=== PATIENT | female | born 1965 | race African-American/Black ===

== ENCOUNTER 2016-09-21 16:19 | Day surgery (SDC) | payer OTHER ==
[2016-09-17 10:47] VITALS: BMI 29.1
--- NOTE | 2016-09-21 11:29 | HP ---
History & Physical Update - History History: No Change - Physical Physical: No Change - Assessment Assessment: No Change - Plan Plan: No Change
[2016-09-21 16:10] VITALS: PULSE 88
[~2016-09-21 16:19] MED LIST: ACETAMINOPHEN 325 MG TABLET (FP) PO PRN; IBUPROFEN 400 MG TABLET (FP) PO PRN; LACTATED RINGERS SOLUTION 1,000 ML IV SCH; ONDANSETRON 4 MG/2 ML VIAL IVPUSH PRN; PROMETHAZINE HCL 25 MG/1 ML VIAL IVPUSH PRN; ceFAZolin SODIUM 1 GM VIAL IVPB ONE; oxyCODONE HCL 5 MG TABLET PO PRN
[2016-09-21] MEDS ORDERED: oxyCODONE HCL 5 MG TABLET ONE (16:28)
--- NOTE | 2016-09-21 16:30 | OP ---
Operative Note - Note: Operative Date: 09/21/16 Pre-Operative Diagnosis: Submucousal myoma Operation: Hysteroscopic Myomectomy. Suction DC Findings: 2-3 cm myoma Post-Operative Diagnosis: Same as Pre-op Surgeon: Clare Herr Anesthesia: General Estimated Blood Loss (mls): 50 Operative Report Dictated: Yes
[2016-09-21] MEDS ORDERED: ACETAMINOPHEN 325 MG TABLET (FP) ONE (17:08)
[2016-09-21 17:56] VITALS: BP 106/70; TEMP 97.8
--- NOTE | 2016-09-23 15:06 | PATH ---
Surgical Pathology Report Patient Name: REED ANDREW [facility]. Rec. #: [id number] /Age/Gender: 1965 (Age: 51) / F Account: [id number] Location: [facility] [facility] Taken: 09/21/2016 Received: 09/22/2016 Reported: 09/23/2016 Physicians: Clare Herr M.D. Specimen(s) Received SUBMUCOSAL MYOMA/SUCTION D&C Clinical History Submucosal myoma Final Diagnosis UTERINE SUBMUCOSAL MYOMA, HYSTEROSCOPIC MYOMECTOMY, SUCTION, DILATION AND CURETTAGE: FRAGMENTS OF BENIGN SMOOTH MUSCLE AND FRAGMENTS OF WEAKLY PROLIFERATIVE ENDOMETRIUM COMPATIBLE WITH SUBMUCOSAL LEIOMYOMA. Electronically Signed Andreas Mix M.D. Gross Description Received in formalin labeled "uterine submucosal myoma" is a 9 g, 4.7 x 4.0 x 0.5 cm aggregate of multiple rae, firm to rubbery tissue fragments, consistent with morcellated fibroids. The specimen is submitted in toto in 4 cassettes. /09/22/2016 [facility]09/22/2016
--- NOTE | 2016-09-28 14:51 | OP ---
DATE OF OPERATION: 09/21/2016 PREOPERATIVE DIAGNOSIS: Submucosal myoma. OPERATION: Hysteroscopic myomectomy and suction dilatation and curettage. POSTOPERATIVE DIAGNOSIS: Submucosal myoma. SURGEON: Clare Herr MD ANESTHESIA: General CEMENTER OIL WELL: Crow Cui Jr., Nurse Roadway Technician PROCEDURE: Patient was taken to the operating room, placed in dorsal lithotomy position, prepped and draped in the usual sterile fashion. A speculum was placed in the vagina. Anterior lip of the cervix was grasped with a single-tooth tenaculum. Cervix was then dilated to accommodate the operative hysteroscope. Operative hysteroscope was then inserted, and cautery was then used to cut the large submucosal myoma. Approximately 2-3 cm was noted, and cautery was then used to cut most of the myoma away from the endometrium. A type I myoma was seen. Suction dilation and curettage was done, and contents were submitted to Pathology. Procedure had to be stopped due to fluid deficit. However, most of the myoma had been removed. Estimated blood loss was 20 mL. All instruments were then removed. Patient tolerated the procedure well and was taken to recovery room in stable condition. CLARE HERR M.D. [id number]
== END 2016-09-21 18:03 | disposition home or self-care (01) ==
LOC: JASU-SURG 16:19
PROVIDERS: ATTEND Obstetrics & Gynecology
PROC: 0UB98ZZ Excision of Uterus, Via Natural or Artificial Opening Endoscopic (ICD-10-PCS; principal; 2016-09-21 11:30)
DX: D25.0 Submucous leiomyoma of uterus (principal)
CPT/HCPCS: 84703; 88305-TC; 94760

== ENCOUNTER → 2016-12-07 | Day surgery (SDC) | payer OTHER ==
--- NOTE | 2016-12-08 17:30 | PATH ---
Cytology Non-Gynecological Report Patient Name: REED ANDREW [facility]. Rec. #: [id number] /Age/Gender: 1965 (Age: 51) / F Account: [id number] Location: RADIOLOGY Taken: 12/07/2016 Received: 12/07/2016 Reported: 12/08/2016 Physicians: Dom Sidhu M.D. Specimen(s) Received RIGHT THYROID FNA Clinical History Right thyroid nodule, 1.53 x 1.02 x 1.16 cm Final Diagnosis THYROID GLAND, RIGHT LOBE, US GUIDED FINE NEEDLE ASPIRATION BIOPSY: EVALUATION IS LIMITED BY LOW CELLULARITY. SCATTERED CLUSTERS OF BLAND APPEARING FOLLICULAR EPITHELIAL CELLS AND COLLOID SUGGESTIVE OF NODULAR GOITER (SEE COMMENT). Comment: The smears show scattered clusters of bland appearing follicular epithelial cells and colloid, suggestive of nodular goiter ([place] category II, benign). Imaging correlations and follow up are suggested. Electronically Signed Andreas Mix M.D. Gross Description Received are four air dried smears, four smears in 95% alcohol, and 20 cc of bloody fluid in formalin. Four diff-quik stained slides, four Pap stained slides and one cell block are made.
== END | disposition home or self-care (01) ==
LOC: JRADIR 10:25
PROVIDERS: ATTEND Internal Medicine Endocrinology, Diabetes & Metabolism
PROC: 0GBH3ZX Excision of Right Thyroid Gland Lobe, Percutaneous Approach, Diagnostic (ICD-10-PCS; principal; 2016-12-07)
PROC: BG44ZZZ Ultrasonography of Thyroid Gland (ICD-10-PCS; 2016-12-07)
DX: E04.2 Nontoxic multinodular goiter (principal)
CPT/HCPCS: 76942; 88173; 88305-TC

== ENCOUNTER → 2017-02-05 | Day surgery (SDC) | payer OTHER ==
--- NOTE | 2017-02-08 16:19 | PATH ---
Cytology Non-Gynecological Report Patient Name: REED ANDREW [facility]. Rec. #: [id number] /Age/Gender: 1965 (Age: 51) / F Account: [id number] Location: RADIOLOGY Taken: 02/05/2017 Received: 02/05/2017 Reported: 02/08/2017 Physicians: Dom Sidhu M.D. Specimen(s) Received ISTHMUS THYROID FNA Clinical History Isthmus 1.25 x 0.77 x 1.46 cm Final Diagnosis THYROID, ISTHMUS, FINE NEEDLE ASPIRATION: SATISFACTORY FOR EVALUATION [place] CATEGORY II: BENIGN (NO MALIGNANT CELLS IDENTIFIED) CYTOLOGIC FINDINGS ARE CONSISTENT WITH A BENIGN FOLLICULAR NODULE (ADENOMATOID NODULE) BENIGN FOLLICULAR CELLS AND COLLOID PRESENT. Comment: Recommend correlation with clinical findings and follow up as clinically indicated. Electronically Signed Khoa Brandt M.D. Gross Description Received are eight direct smears, four of which are air-dried and Diff-Quik stained, and four of which are alcohol fixed and Pap stained. Also received is 20 ml of bloody formalin from which one cellblock is prepared.
== END | disposition home or self-care (01) ==
LOC: JRADIR 10:18
PROVIDERS: ATTEND Internal Medicine Endocrinology, Diabetes & Metabolism
PROC: 0G9K3ZX Drainage of Thyroid Gland, Percutaneous Approach, Diagnostic (ICD-10-PCS; principal; 2017-02-05)
PROC: BG44ZZZ Ultrasonography of Thyroid Gland (ICD-10-PCS; 2017-02-05)
DX: E04.1 Nontoxic single thyroid nodule (principal)
CPT/HCPCS: 76942; 88173; 88305-TC

== ENCOUNTER 2017-02-22 11:47 | Emergency (ER) | payer OTHER ==
[2017-02-22 11:57] VITALS: TEMP 98.1; BMI 28.1
[2017-02-22] MEDS ORDERED: KETOROLAC TROMETHAMINE 30 MG/1 ML VIAL IVPUSH ONE (15:00)
[2017-02-22] MEDS ORDERED: KETOROLAC TROMETHAMINE 30 MG/1 ML VIAL ONE (15:09)
[2017-02-22 15:27] LABS: BASOPHIL 0.6 % (0-2.0); EOSINOPHIL 0.9 % (0-4.5); MCH 28.5 pg (25.7-33.7); MEAN CELL VOLUME 86.4 fl (80-96); MEAN PLT VOLUME 9.5 fl (7.5-11.1); NEUTROPHILS 55.5 % (42.8-82.8); PLATELET COUNT 236 K/MM3 (134-434); WHITE BLOOD COUNT 4.8 K/mm3 (4.0-10.0)
[2017-02-22 15:29] LABS: URINE APPEARANCE SLCLOUDY; URINE BILIRUBIN NEGATIVE (NEGATIVE); URINE BLOOD 1+ (NEGATIVE); URINE COLOR YELLOW; URINE GLUCOSE (UA) NEGATIVE (NEGATIVE); URINE KETONE NEGATIVE (NEGATIVE); URINE LEUK ESTERASE NEGATIVE (NEGATIVE); URINE NITRITE NEGATIVE (NEGATIVE); URINE PROTEIN NEGATIVE (NEGATIVE); URINE UROBILINOGEN NEGATIVE mg/dL (0.2-1.0)
[2017-02-22 15:32] LABS: URINE MUCUS RARE; URINE RBC 8 /hpf (0-3); URINE WBC 1 /hpf (3-5)
[2017-02-22 15:38] LABS: CPK 373 IU/L (26-192)
[2017-02-22 15:39] LABS: TROPONIN I < 0.02 ng/ml (0.00-0.05)
--- NOTE | 2017-02-22 17:04 | PDOC ---
History of Present Illness - General Chief Complaint: Pain Stated Complaint: LT SIDE PAIN Time Seen by Provider: 02/22/17 14:25 History Source: Patient Exam Limitations: No Limitations - History of Present Illness Travel History: No Initial Comments: 02/22/17 17:00 52-year-old male presents to the emergency room with complaints of right upper quadrant pain which she states is worsened with movement. Patient states pain has been present for the past 2 weeks and has not taken anything for the above. Patient denies chest pain, shortness of breath, nausea, vomiting, fever, chills , radiation of pain, change in urine pattern, change in bowel pattern. Patient states has not seen his PCP for the above. Timing/Duration: reports: intermittent Quality: reports: moderate, aching Abdominal Pain Onset Location: reports: LUQ Pain Radiation: reports: no radiation Activities at Onset: reports: none Aggravating Factors: improves with: Movement Alleviating Factors: improves with: Rest Past History - Past Medical History Allergies/Adverse Reactions: Allergies Allergy/AdvReac Type Severity Reaction Status Date / Time nitrofurantoin Allergy Severe Hives Verified 02/22/17 15:01 Home Medications: Ambulatory Orders Levothyroxine [Synthroid -] 50 mcg PO DAILY 09/17/16 Simvastatin 20 mg PO DAILY 09/17/16 Ibuprofen [Motrin -] 600 mg PO TID PRN #21 tablet 02/22/17 Asthma: (BRONCHITIS) CVA: No Dementia: No Diabetes: No GI Disorders: No Disorders: Yes (KIDNEY STONES) Hypercholesterolemia: Yes Kidney Stones: Yes Liver Disease: No Seizures: No Thyroid Disease: Yes (HYPOTHYROIDISM) - Psycho/Social/Smoking Cessation Hx Anxiety: No Suicidal Ideation: No Smoking History: Former smoker Have you smoked in the past 12 months: No Information on smoking cessation initiated: No Hx Alcohol Use: No Drug/Substance Use Hx: No Substance Use Type: None Patient Lives Alone: No Lives with/in: spouse/SO Review of Systems - Review of Systems Able to Perform ROS?: No Is the patient limited Latvian proficient: No Constitutional: No: Symptoms Reported HEENTM: No: Symptoms Reported Respiratory: No: Symptoms reported Cardiac (ROS): No: Symptoms Reported ABD/GI: Yes: Abdominal cramping (luq) Musculoskeletal: No: Symptoms Reported Integumentary: No: Symptoms Reported Neurological: No: Symptoms reported *Physical Exam - Vital Signs Last Vital Signs Temp Pulse Resp BP Pulse Ox 98.1 F 78 18 155/85 100 02/22/17 11:54 02/22/17 11:54 02/22/17 11:54 02/22/17 11:54 02/22/17 11:54 - Physical Exam General Appearance: Yes: Nourished, Appropriately Dressed. No: Apparent Distress HEENT: negative: Pale Conjunctivae Respiratory/Chest: positive: Lungs Clear, Normal Breath Sounds. negative: Respiratory Distress, Accessory Muscle Use Cardiovascular: positive: Regular Rhythm, Regular Rate. negative: Murmur Gastrointestinal/Abdominal: positive: Soft, Tenderness (no rebound, no guarding , tender over 10th and 11th rib at mcl to mal. ) Musculoskeletal: negative: CVA Tenderness Extremity: positive: Normal Capillary Refill. negative: Pedal Edema Integumentary: positive: Normal Color, Warm, Moist. negative: Rash Neurologic: positive: Motor Strength 5/5 (ambulatory) Heart Score/ECG Review - History History: Slightly suspicious - Electrocardiogram EKG: Normal - Age Age: 45-65 - Risk Factors Risk Factors Heart Score: Yes Hx Hypercholesterolemia Based on the list above the patient has:: 1-2 risk factors - Troponin Troponin: </= normal limit - Score Heart Score - Total: 2 - ECG Intrepretation Rhythm: Regular Rhythm (rate 67. no acute findings noted) ED Treatment Course - LABORATORY CBC & Chemistry Diagram: 02/22/17 15:02 - ADDITIONAL ORDERS Additional order review: Laboratory Results 02/22/17 02/22/17 15:20 15:02 Creatine Kinase 373 H Troponin I < 0.02 Urine Color Yellow Urine Appearance Slcloudy Urine pH 6.0 Urine Protein Negative Urine Glucose (UA) Negative Urine Ketones Negative Urine Blood 1+ H Urine Nitrite Negative Urine Bilirubin Negative Urine Urobilinogen Negative Ur Leukocyte Esterase Negative Urine RBC 8 Urine WBC 1 Ur Epithelial Cells Rare Urine Mucus Rare 02/22/17 15:02 RBC 4.48 MCV 86.4 MCHC 33.0 RDW 16.0 H MPV 9.5 Neutrophils % 55.5 Lymphocytes % 36.4 Monocytes % 6.6 Eosinophils % 0.9 Basophils % 0.6 - RADIOLOGY Radiology Studies Ordered: Category Date Time Status CHEST X-RAY PORTABLE* [RAD] Stat Radiology 02/22/17 15:00 Completed - Medications Given in the ED: ED Medications Discontinued Medications Generic Name Dose Route Start Last Admin Trade Name Benigonq PRN Reason Stop Dose Admin Ketorolac Tromethamine 30 mg 02/22/17 15:00 02/22/17 15:18 Toradol Injection - IVPUSH 02/22/17 15:01 30 mg ONCE ONE Administration Medical Decision Making - Medical Decision Making 16:15 Patient here with intermittent left upper quadrant pain worsened with movement. Patient on exam had point tenderness at midclavicular line extending to the mid axillary line. Skin was otherwise intact. Lungs were otherwise clear. Patient was ordered for chest x-ray, labs, EKG, IV Toradol, and cardiac profile. 02/22/17 17:17 Chest x-ray negative. Laboratory Tests 02/22/17 02/22/17 02/22/17 15:02 15:02 15:20 WBC 4.8 Hgb 12.8 Hct 38.8 RDW 16.0 H Plt Count 236 Neutrophils % 55.5 Creatine Kinase 373 H Troponin I < 0.02 Urine Blood 1+ H Urine Nitrite Negative Ur Leukocyte Esterase Negative Urine WBC 1 patient recommended increase her fluids secondary mildly elevated CK. *DC/Admit/Observation/Transfer Diagnosis at time of Disposition: Musculoskeletal pain - Discharge Dispostion Disposition: HOME Condition at time of disposition: Improved - Prescriptions Prescriptions: Ibuprofen [Motrin -] 600 mg PO TID PRN #21 tablet PRN Reason: Pain - Referrals Referrals: Maddie Heard [Primary Care Provider] - - Patient Instructions Printed Discharge Instructions: DI for Musculoskeletal Pain Additional Instructions: Please take Motrin 600 mg every 6-8 hours for discomfort. drink plenty of fluids. Please follow-up with your primary care physician to discuss today's visit. Please return to ED if symptoms worsen.
[2017-02-22 17:32] VITALS: BP 146/79; PULSE 84
--- NOTE | 2017-02-23 13:09 | EKG ---
Test Reason : Blood Pressure : / mmHG Vent. Rate : 073 BPM Atrial Rate : 073 BPM P-R Int : 150 ms QRS Dur : 090 ms QT Int : 418 ms P-R-T Axes : 042 030 014 degrees QTc Int : 460 ms NORMAL SINUS RHYTHM NORMAL ECG NO PREVIOUS ECGS AVAILABLE REPEAT EKG IF CLINICALLY INDICATED Confirmed by NICOLE MARADIAGA MD ([id number]) on 02/23/2017 1:08:36 PM Referred By: Confirmed By:NICOLE MARADIAGA MD
== END 2017-02-22 17:32 | disposition home or self-care (01) ==
LOC: JER 11:47
PROC: 3E0333Z Introduction of Anti-inflammatory into Peripheral Vein, Percutaneous Approach (ICD-10-PCS; principal; 2017-02-22)
DX: R10.12 Left upper quadrant pain (principal); E03.9 Hypothyroidism, unspecified; E78.00 Pure hypercholesterolemia, unspecified
CPT/HCPCS: 36415; 71010-TC; 81003; 81015; 82553; 84484; 85025; 93005; 93010; 96374; 99283-25

== ENCOUNTER 2019-08-12 13:05 | Emergency (ER) | payer OTHER ==
[2019-08-12 13:39] VITALS: BP 153/83; PULSE 105; TEMP 97.6; BMI 29.0
--- NOTE | 2019-08-12 14:23 | PDOC ---
History of Present Illness - General Chief Complaint: Psychiatric Stated Complaint: ABD PAIN Time Seen by Provider: 08/12/19 14:21 History Source: Patient Exam Limitations: No Limitations - History of Present Illness Initial Comments: 08/12/19 14:21 PCP: Dr. Hameed HPI: 54yo F PMH HLD, HTN, hypothyroidism presenting with complain of "I have been and dilated for 2 years and would like to be checked." Reports she was seen at [facility] and was discharged from their ED last night and was given transportation to [facility] for evaluation of her . She reports having Dr. Herr as her CABLE TELEVISION ACCESS COORDINATOR, s/p myomectomy 2016. Reports getting normal blood tests off and on at [facility] and PCP/CABLE TELEVISION ACCESS COORDINATOR office. Denies any psychiatric illnesses. State that the only thing that bothers her is feeling a little more tired than usual. Denies abdominal pain, chest pain, nausea, vomiting, fevers, chills, dysuria, cough, abnormal bowel movements. Per brother, Jd Aaron, Patient keeps to herself, hasn't seen her in 2 months as she "keeps to herself." She has been hearing voices for 2 years or more. He is not aware of any psychiatrist that follows her but reports that she has been in and out of the hospital over this period. [facility] per attending note. Blood work and psychiatric evaluation yesterday. All: Nitrofurantoin > Hives PMH: As above PSH: Colonoscopy, Endoscopy, Lithotripsy, Hernia repair SHx: Lives alone, denies toxic habits 08/12/19 16:19 Per Sister Meri, patient was admitted to a [facility] here in [employer], given diagnosis of schizophrenia. She also reports that the patient was last in touch with family before Neymar, now asking them to leave her to herself. Per Meri, the family had discussions with patient and Dr. Hameed and patient refused to seek care at that time. Past History - Travel Traveled outside of the country in the last 30 days: No Close contact w/someone who was outside of country & ill: No - Past Medical History Allergies/Adverse Reactions: Allergies Allergy/AdvReac Type Severity Reaction Status Date / Time nitrofurantoin Allergy Severe Hives Verified 08/12/19 13:32 Home Medications: Ambulatory Orders Levothyroxine [Synthroid -] 50 mcg PO DAILY 09/17/16 Simvastatin 20 mg PO HS 09/17/16 Ibuprofen [Motrin -] 600 mg PO TID PRN #21 tablet 02/22/17 Cephalexin [Keflex] 500 mg PO BID 5 Days #10 capsule 08/12/19 Asthma: (BRONCHITIS) CVA: No Dementia: No Diabetes: No GI Disorders: No Disorders: Yes (KIDNEY STONES) Hypercholesterolemia: Yes Kidney Stones: Yes Liver Disease: No Seizures: No Thyroid Disease: Yes (HYPOTHYROIDISM) - Psycho Social/Smoking Cessation Hx Smoking History: Never smoked Have you smoked in the past 12 months: No Hx Alcohol Use: No Drug/Substance Use Hx: No Substance Use Type: None Review of Systems - Review of Systems Able to Perform ROS?: Yes Is the patient limited Indonesian proficient: Yes Constitutional: No: Chills, Diaphoresis, Fever HEENTM: No: Recent change in vision, Nose Congestion, Throat Pain Respiratory: No: Cough, Shortness of Breath, Wheezing, Productive cough Cardiac (ROS): No: Chest Pain, Irregular Heart Rate, Lightheadedness, Palpitations, Syncope, Chest Tightness ABD/GI: No: Constipated, Diarrhea, Nausea, Poor Appetite, Poor Fluid Intake, Vomiting : No: Burning, Dysuria, Discharge, Frequency Musculoskeletal: No: Muscle Pain, Muscle Weakness Integumentary: No: Pallor, Pruritus, Rash, Sweating Neurological: No: Headache, Numbness, Tingling, Weakness Psychiatric: No: Change in Appetite Endocrine: No: Increased Thirst, Increased Urine, Change in Weight Hematologic/Lymphatic: No: Anemia, Blood Clots, Easy Bleeding All Other Systems: Reviewed and Negative *Physical Exam - Vital Signs Last Vital Signs Temp Pulse Resp BP Pulse Ox 97.6 F 105 H 18 153/83 99 08/12/19 13:36 08/12/19 13:36 08/12/19 13:36 08/12/19 13:36 08/12/19 13:36 - Physical Exam 08/12/19 16:31 Vitals reviewed, AFVSS GEN: Well appearing, appears stated age, NAD, comfortable. AAOx3. HEENT: NCAT, EOMI, PERRL. Sclera anicteric, noninjected. No facial asymmetry. Moist mucous membranes. Normal voice. Trachea midline. CV: RRR, S1/S2, no murmurs / rubs / gallops appreciated. LUNG: CTAB, normal work of breathing. No wheezes, rales, rhonchi. No cough. Speaking full sentences. GI: Soft, NTND, +BS, no guarding, no rebound. No masses. Neg CVAT b/l. EXTREMITIES: 2+ distal pulses. No LE edema. No obvious deformities of all extremities. SKIN: Warm, dry, no rashes appreciated, non-jaundiced. PSYCH: Normal mood and affect. Cooperative and appropriate. NEURO: CN grossly intact. Moving all extremities well. Normal strength and sensation grossly. Medical Decision Making - Medical Decision Making 08/12/19 16:32 54yo F PMH HLD, HTN, hypothyroidism presenting with complain of "I have been and dilated for 2 years and would like to be checked." History of Schizophrenia, isolated from family for past 2 months, no medical complaints, cleared medically and psych at [facility] yesterday. Not a risk to self or others at the current time. Fixed delusions regarding . - UA, UPreg 08/12/19 17:07 - Non-, patient informed - UTI, Keflex 500 given - Keflex Rx sent to pharmacy Dispo: Home Discharge - Discharge Information Problems reviewed: Yes Clinical Impression/Diagnosis: Schizophrenia Qualifiers: Schizophrenia type: unspecified Qualified Code(s): F20.9 - Schizophrenia, unspecified Urinary tract infection Qualifiers: Urinary tract infection type: site unspecified Hematuria presence: with hematuria Qualified Code(s): N39.0 - Urinary tract infection, site not specified Condition: Stable Disposition: HOME - Admission No - Additional Discharge Information Prescriptions: Cephalexin [Keflex] 500 mg PO BID 5 Days #10 capsule - Follow up/Referral Referrals: Mae Hameed MD [Primary Care Provider] - - Patient Discharge Instructions Patient Printed Discharge Instructions: DI for Urinary Tract Infection (UTI) Additional Instructions: You were diagnosed with a urinary tract infection. Please cotton picker the prescription for antibiotics at your pharmacy and take them as directed. Follow up with your primary care doctor in the next week. Return to the ED for any new or concerning symptoms. - Post Discharge Activity
--- NOTE | 2019-08-12 15:18 | PDOC ---
Attending Attestation - Resident Resident Name: DaoQuentin - ED Attending Attestation I have performed the following: I have examined & evaluated the patient, The case was reviewed & discussed with the resident, I agree w/resident's findings & plan, Exceptions are as noted - HPI HPI: 08/12/19 15:18 54y F hx of HL, htn, presents with complaint of possible . Pt states that her 'fetus was in the sac and now it is in the uterus', states that she has been for two years, had gone to [facility] last night and had lab work and a urine test and was told she was going to be transferred to [facility]. She denies any other complaints including fever/chills, cp, sob, abd pain, vag bleeding, vag discharge, diarrhea. 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 The police was notified and they were sent to [facility] for evaluation. The patient had blood test, U tox, EtOH level, UA that were performed without any notable findings. The patient was also cleared by psych and then discharged. There was no mention of any related complaint, the patient did not have a test. Exam: GENERAL: The patient is awake, alert, and fully oriented, Nontoxic - in no acute distress. HEAD: Normocephalic, atraumatic. EYES: extraocular movements intact, sclera anicteric, conjunctiva clear. ENT: Normal voice, Moist mucous membranes. NECK: Normal range of motion, supple LUNGS: Breath sounds equal, clear to auscultation bilaterally. No wheezes, no rhonchi, no rales. HEART: Regular rate and rhythm, normal S1 and S2 without murmur, rub or gallop. ABDOMEN: Soft, nontender, No guarding, no rebound. No CVA tenderness EXTREMITIES: Normal range of motion, trace edema. NEUROLOGICAL: No facial assymetry, Normal speech, moving all 4 extremities extremities spontaneously symmetrically PSYCH: Normal mood, normal affect. SKIN: Warm, Dry, normal turgor, Will obtain a UA and U . Patient has no other complaints including abdominal pain, vaginal bleeding, or other symptoms the patient also had a recent work-up with lab work at [facility] will defer further blood test at this time. The patient is illogical, she denies any SI/HI. If lab tests unremarkable anticipate discharge with outpatient follow-up - Physicial Exam PE: 08/14/19 09:38 see abovbe - Medical Decision Making pts ua suggestive of UTI willtreat with abx negative pt asymptmoatic. will have the pt fu with PMD return precautions were discussed
[2019-08-12 16:16] LABS: URINE APPEARANCE TURBID; URINE BILIRUBIN NEGATIVE (NEGATIVE); URINE COLOR YELLOW; URINE GLUCOSE (UA) NEGATIVE (NEGATIVE); URINE KETONE 1+ (NEGATIVE)
[2019-08-12 16:17] LABS: URINE PROTEIN TRACE (NEGATIVE)
[2019-08-12 16:18] LABS: EPI CELLS 12.7 /HPF (0-5/HPF); URINE LEUK ESTERASE 2 (NEGATIVE); URINE NITRITE NEGATIVE (NEGATIVE); URINE RBC 10.4 /hpf (0-4); URINE WBC 161.7 /hpf (0-5)
[2019-08-12 16:19] LABS: HYALINE CASTS 664.54 /lpf (0-8); URINE BACTERIA 233.7 /hpf (NEGATIVE)
[2019-08-12] MEDS ORDERED: CEPHALEXIN MONOHYDRATE 500 MG CAPSULE (UD) PO ONE (17:10)
[2019-08-12] MEDS ORDERED: CEPHALEXIN MONOHYDRATE 500 MG CAPSULE (UD) ONE (17:19)
== END 2019-08-12 17:26 | disposition home or self-care (01) ==
LOC: JER 13:05
DX: N39.0 Urinary tract infection, site not specified (principal); F20.9 Schizophrenia, unspecified; I10 Essential (primary) hypertension; E78.5 Hyperlipidemia, unspecified; E03.9 Hypothyroidism, unspecified
CPT/HCPCS: 81003; 84703; 99282-25

== ENCOUNTER 2020-10-25 15:43 | Emergency (ER) | payer OTHER ==
[2020-10-25 16:23] VITALS: BP 136/86; PULSE 107; TEMP 97.7; BMI 32.5
== END 2020-10-25 18:36 | disposition home or self-care (01) ==
LOC: JER 15:43
DX: U07.1 COVID-19 (principal); J98.01 Acute bronchospasm
CPT/HCPCS: 71046-TC-FY; 99283-25

== ENCOUNTER 2020-11-09 16:45 | Emergency (ER) | payer OTHER ==
[2020-11-09 16:54] VITALS: BP 153/92; PULSE 91; TEMP 98.4; BMI 32.5
== END 2020-11-09 19:12 | disposition home or self-care (01) ==
LOC: JER 16:45
DX: M54.16 Radiculopathy, lumbar region (principal)
CPT/HCPCS: 72110-TC-FY; 99283-25

== ENCOUNTER 2020-11-10 00:25 | Emergency (ER) | payer OTHER ==
[2020-11-10 00:44] VITALS: BMI 29.7
[2020-11-10 02:40] LABS: VENOUS BASE EXCESS 0.8 mmol/L (-2-2); VENOUS PCO2 51.4 mmHg (38-52); VENOUS PH 7.344 (7.310-7.410)
[2020-11-10 02:46] LABS: BASO % 0.5 % (0-2.0); EOS % 2.8 % (0-4.5); HEMATOCRIT 40.8 % (32.4-45.2); HEMOGLOBIN 13.7 GM/dL (10.7-15.3); LYMPH % 22.9 % (8-40); MCH 30.4 pg (25.7-33.7); MCHC 33.7 g/dl (32.0-36.0); MEAN CELL VOLUME 90.2 fl (80-96); MEAN PLT VOLUME 10.5 fl (7.5-11.1); MONO % 9.5 % (3.8-10.2); NEUT % 64.3 % (42.8-82.8); PLATELET COUNT 202 K/MM3 (134-434); RBC 4.53 M/mm3 (3.60-5.2); RDW 14.8 % (11.6-15.6)
[2020-11-10 02:56] LABS: INR 0.96 (0.83-1.09); PROTHROMBIN TIME (PATIENT) 11.8 SEC (9.7-13.0)
[2020-11-10 02:59] LABS: ACTIVATED PTT 25.8 SECONDS (25.2-36.5)
[2020-11-10 03:00] LABS: CHLORIDE 107 mmol/L (98-107); SODIUM 143 mmol/L (136-145)
[2020-11-10 03:02] LABS: CALCIUM 9.2 mg/dL (8.5-10.1)
[2020-11-10 03:03] LABS: ALBUMIN 4.2 g/dl (3.4-5.0); ANION GAP 6 MMOL/L (8-16); BLOOD UREA NITROGEN 9.3 mg/dL (7-18); CO2 29 mmol/L (21-32); GLUCOSE,RANDOM 96 mg/dL (74-106)
[2020-11-10 03:06] LABS: CREATININE 0.8 mg/dL (0.55-1.3); SGOT/AST 27 U/L (15-37); SGPT/ALT 28 U/L (13-61)
[2020-11-10 03:08] LABS: BILIRUBIN,TOTAL 0.5 mg/dL (0.2-1); TOT PROT 7.4 g/dl (6.4-8.2)
[2020-11-10 03:09] LABS: ALK PHOS 76 U/L (45-117)
[2020-11-10 03:24] LABS: ERYTHROCYTE SEDIMENTATION RATE 19 mm/hr (0-30)
[2020-11-10] MEDS ORDERED: METOPROLOL TARTRATE 25 MG TABLET (FP) PO ONE (05:10)
[2020-11-10] MEDS ORDERED: METOPROLOL TARTRATE 25 MG TABLET (FP) ONE (05:16)
[2020-11-10 05:22] VITALS: BP 134/79; PULSE 95; TEMP 98.6
== END 2020-11-10 05:22 | disposition home or self-care (01) ==
LOC: JER 00:25
DX: R06.02 Shortness of breath (principal); R00.0 Tachycardia, unspecified
CPT/HCPCS: 36415; 71275-TC; 80053; 82550; 82553; 82803; 84443; 84484; 85025; 85379; 85610; 85651; 85730; 93005; 93010; 93971-TC; 99285-25; C9803; Q9967; U0003; U0005

== ENCOUNTER 2020-11-10 13:22 | Emergency (ER) | payer OTHER ==
[2020-11-10 13:37] VITALS: BMI 29.7
[2020-11-10 15:36] LABS: BASO % 0.7 % (0-2.0); EOS % 3.9 % (0-4.5); HEMATOCRIT 40.7 % (32.4-45.2); HEMOGLOBIN 13.6 GM/dL (10.7-15.3); LYMPH % 26.7 % (8-40); MCH 29.9 pg (25.7-33.7); MCHC 33.4 g/dl (32.0-36.0); MEAN CELL VOLUME 89.6 fl (80-96); MEAN PLT VOLUME 10.2 fl (7.5-11.1); MONO % 8.9 % (3.8-10.2); NEUT % 59.8 % (42.8-82.8); PLATELET COUNT 221 K/MM3 (134-434); RBC 4.54 M/mm3 (3.60-5.2); RDW 14.9 % (11.6-15.6); WHITE BLOOD COUNT 5.2 K/mm3 (4.0-10.0)
[2020-11-10 15:55] LABS: CHLORIDE 106 mmol/L (98-107); SODIUM 140 mmol/L (136-145)
[2020-11-10 15:57] LABS: BLOOD UREA NITROGEN 7.8 mg/dL (7-18); CALCIUM 9.2 mg/dL (8.5-10.1)
[2020-11-10 15:58] LABS: ALBUMIN 4.2 g/dl (3.4-5.0); ANION GAP 5 MMOL/L (8-16); CO2 30 mmol/L (21-32); GLUCOSE,RANDOM 102 mg/dL (74-106)
[2020-11-10 16:01] LABS: CREATININE 0.7 mg/dL (0.55-1.3); SGOT/AST 27 U/L (15-37); SGPT/ALT 29 U/L (13-61)
[2020-11-10 16:02] LABS: BILIRUBIN,TOTAL 0.9 mg/dL (0.2-1); TOT PROT 7.5 g/dl (6.4-8.2)
[2020-11-10 16:03] LABS: ALK PHOS 78 U/L (45-117)
[2020-11-10 17:15] VITALS: BP 134/78; PULSE 85; TEMP 97.7
== END 2020-11-10 18:00 | disposition home or self-care (01) ==
LOC: JERFT 13:22 → JER 13:22
DX: R20.9 Unspecified disturbances of skin sensation (principal)
CPT/HCPCS: 36415; 70450-TC; 71046-TC-FY; 80053; 82550; 82553; 84484; 85025; 93005; 93010; 99284-25

== ENCOUNTER 2020-11-11 22:37 | Emergency (ER) | payer OTHER ==
[2020-11-11 22:44] VITALS: BP 149/97; PULSE 96; TEMP 98.7; BMI 29.7
== END 2020-11-12 01:55 | disposition home or self-care (01) ==
LOC: JER 22:37
DX: R20.2 Paresthesia of skin (principal)
CPT/HCPCS: 72125-TC; 72128-TC; 72131-TC; 93005; 93010; 99284-25

== ENCOUNTER 2023-01-04 13:48 | Emergency (ER) | payer OTHER ==
[2023-01-04 14:13] VITALS: BP 142/91; PULSE 78; RESP 18; TEMP 98; BMI 32.7
[2023-01-04] MEDS ORDERED: predniSONE 20 MG TABLET (UD) PO ONE (15:56)
[2023-01-04] MEDS ORDERED: ACETAMINOPHEN 500 MG TABLET (FP) PO ONE (15:57)
[2023-01-04] MEDS ORDERED: LIDOCAINE 5% TOPICAL PATCH TP ONE (15:57)
[2023-01-04] MEDS ORDERED: LIDOCAINE 5% TOPICAL PATCH ONE (16:03)
[2023-01-04] MEDS ORDERED: ACETAMINOPHEN 500 MG TABLET (FP) ONE (16:03)
[2023-01-04] MEDS ORDERED: predniSONE 20 MG TABLET (UD) ONE (16:03)
[2023-01-04] MEDS ORDERED: LIDOCAINE PATCH REMOVAL MC SCH (22:00)
== END 2023-01-04 19:55 | disposition home or self-care (01) ==
LOC: JERFT 13:48
DX: M25.552 Pain in left hip (principal); R22.42 Localized swelling, mass and lump, left lower limb; M71.22 Synovial cyst of popliteal space [Baker], left knee
CPT/HCPCS: 93971-TC; 99284-25

== ENCOUNTER → 2023-09-07 | Day surgery (SDC) | payer OTHER | END | disposition home or self-care (01) | LOC: JRADIR 11:00 | PROVIDERS: ATTEND Internal Medicine Endocrinology, Diabetes & Metabolism | PROC: 0G9G3ZX Drainage of Left Thyroid Gland Lobe, Percutaneous Approach, Diagnostic (ICD-10-PCS; principal; 2023-09-07) | DX: E04.1 Nontoxic single thyroid nodule (principal) | CPT/HCPCS: 10005; 76942 ==

== ENCOUNTER → 2023-09-14 | Day surgery (SDC) | payer OTHER | END | disposition home or self-care (01) | LOC: JRADIR 10:56 → JRAD 10:56 | PROVIDERS: ATTEND Otolaryngology | PROC: 0G9H3ZX Drainage of Right Thyroid Gland Lobe, Percutaneous Approach, Diagnostic (ICD-10-PCS; principal; 2023-09-14) | DX: E04.1 Nontoxic single thyroid nodule (principal) | CPT/HCPCS: 10005; 76942; 88173; 88305-TC ==

== ENCOUNTER → 2023-10-01 | Day surgery (SDC) | payer OTHER | END | disposition home or self-care (01) | LOC: JRADIR 10:14 | PROVIDERS: ATTEND Otolaryngology | PROC: 0G9H3ZX Drainage of Right Thyroid Gland Lobe, Percutaneous Approach, Diagnostic (ICD-10-PCS; principal; 2023-10-01) | DX: E04.1 Nontoxic single thyroid nodule (principal) | CPT/HCPCS: 10005; 76942 ==

== ENCOUNTER 2024-10-06 06:46 | Day surgery (SDC) | payer OTHER ==
[2024-10-04 08:20] VITALS: BMI 33.5
[2024-10-06] MEDS ORDERED: LIDOCAINE HCL/PF 1% SDV 5ML VIAL ONE (07:33)
[2024-10-06] MEDS ORDERED: BUPIVACAINE HCL/PF 0.75% 10 ML VIAL ONE (07:33)
[2024-10-06] MEDS ORDERED: ACETAMINOPHEN 500 MG TABLET (FP) PO PRN (08:59)
[2024-10-06] MEDS: BUPIVACAINE HCL/PF 0.75% 10 ML VIAL NR ONE ×2 (14:38)
[2024-10-06] MEDS: LIDOCAINE HCL 1% PRESERVATIVE FREE - 30ML VIAL IJ ONE ×2 (14:38)
[2024-10-06 14:55] VITALS: BP 131/66; PULSE 78; RESP 18; TEMP 97.5
== END 2024-10-06 15:30 | disposition home or self-care (01) ==
LOC: JASU-SURG 06:46
PROVIDERS: ATTEND Pain Medicine Pain Medicine
PROC: 3E0T33Z Introduction of Anti-inflammatory into Peripheral Nerves and Plexi, Percutaneous Approach (ICD-10-PCS; 2024-10-06)
PROC: 3E0T3BZ Introduction of Anesthetic Agent into Peripheral Nerves and Plexi, Percutaneous Approach (ICD-10-PCS; principal; 2024-10-06 11:15)
DX: M47.816 Spondylosis without myelopathy or radiculopathy, lumbar region (principal)
CPT/HCPCS: 76000-TC-FY

== ENCOUNTER 2024-12-08 07:11 | Day surgery (SDC) | payer OTHER ==
[2024-12-05 11:25] VITALS: BMI 33.5
[2024-12-08 12:49] VITALS: BP 145/85; PULSE 88; RESP 18; TEMP 97.3
[2024-12-08] MEDS ORDERED: ACETAMINOPHEN 500 MG TABLET (FP) PO PRN (15:45)
== END 2024-12-08 13:38 | disposition home or self-care (01) ==
LOC: JASU-SURG 07:11
PROVIDERS: ATTEND Pain Medicine Pain Medicine
PROC: 015B3ZZ Destruction of Lumbar Nerve, Percutaneous Approach (ICD-10-PCS; principal; 2024-12-08 12:20)
DX: M47.816 Spondylosis without myelopathy or radiculopathy, lumbar region (principal)
CPT/HCPCS: 76000-TC-FY